=== PATIENT | male | born 1995 | race Caucasian/White ===

== ENCOUNTER 2016-04-23 20:48 | Emergency (ER) | payer MEDICAID ==
[~2016-04-23] VITALS: Ht 180.3 cm; Wt 45.4 kg
[~2016-04-23 20:48] MED LIST: AMOXICILLIN/CLA1 TA1 PO; CORTISPORIN (GE10 M1 OT; MOTRIN 100100 MG/5 M PO; TAMIFLU30 MG PO
[2016-04-23 21:34] VITALS: BP 113/66
--- NOTE | 2016-04-23 21:36 | Urgent Treatment Center Report ---
History of Present Issue Date/Time Seen by Provider 04/23/162125 Visit Reason Pt arrived:Walked Presenting Problem:PT STATES HE INJURIED HIS LEFT ELBOW AT [employer]. Location if Accident:[place] Onset of symptoms date/time:/ or onset unknown for:MEDICAL HX UNKNOWN Have you (or family members/close friends) recently traveled outside the [place]? N If Yes, where/when: Have you had exposure to infectious disease within the past month? TB? Other? Specify: Here w/ grandmother after hitting the inside of his left elbow w/ knumb chunks about 2 hours ago while at [employer] N/T and severe pain immediately after injury but now N/T has resolved and pain "some" better. Hasn't taken or tried anything for symptoms. Worried because painful to fully bend elbow. No swelling. Source patient, family (grandmother) Exam Limitations no limitations ALLERGIES Coded Allergies: Adhesives (I-RASH 06/28/15) azithromycin (06/28/15) codeine (06/28/15) latex (06/28/15) Home Medications Reported Medications No Known Home Medications History Medical History General CAD? No Angina: No RI: No Hypertension? No Hyperlipidemia? No CHF? No DVT? No PE? No COPD? No Asthma? No Anemia? No GERD? No Gastric ulcers? No GI Bleed? No Hernia? No Thyroid Problems? No Hypothyroidism? No CVA? No Seizures? No Diabetes? No Renal Insuffiency? No UTI? No Stones? No BPH? No GB Disease: Yes Nephritic Syndrome? No Asplenia? No Hepatitis? No Sickle Cell Disease? No Arthritis? No Migraines? No Cataracts? No Glaucoma? No MRSA? No HIV? No TB? No Anxiety? No Depression? No Cancer? No More? No Immunization HX Ped.Immunizations UTD Yes DT/Tetanus 5-10 Years Ago Flu Refused Pneumonia Refuses Surgical Hx Previous Surgery?Y TRAUMA AGE 3-RIB FX -LUNG PUNCTURED RICHAR Family History Family HX Diabetes No CAD No Hypertension Yes Hyperlipidemia No Cancer No TB No Social History Smoking Hx Smoker: Never Smoker Tobacco: No Alcohol Alcohol: No Review of Systems All Other Systems Reviewed and Negative Musculoskeletal see HPI Skin denies lesions Psychiatric/Neurological see HPI Physical Exam Vital Signs Vital Signs Date Time Temp Pulse Resp B/P Pulse O2 O2 Flow FiO2 Ox Delivery Rate 04/23 2133 98.5 78 18 113/66 98 04/23 2103 98.5 78 18 113/ 98 General Appearance normal appearance, no apparent distress, active Respiratory Status No: respiratory distress. Cardiovascular no peripheral edema Extremities limited range of motion (full extension), moderate tenderness over medial epicondyle only, slightly limited flexion left elbow, no swelling or bruising Strength 5 Upper Ext (L), 5 Upper Ext (R) Neurologic alert Skin normal color, warm/dry Medical Decision Making LABS/Meds/Orders Pt receiving controlled substance in ED? No Results/Orders Orders Procedure Date/time Status ELBOW-LT-3 VIEWS 04/23 2107 Active XRAY/CT/US XRAY/CT/US XRAY elbow (left) XR interpretation by reviewed by me (lizbeth w/ Dr. Huitron over phone) Xray Results no fracture seen, no dislocation Departure Departure Time of Disposition 2133 Disposition DC Home or Self Care(routine) Clinical Impression Primary Impression: Left elbow contusion Qualifiers: Encounter type: initial encounter Qualified Code: S50.02XA - Contusion of left elbow, initial encounter Condition STABLE Referrals Silver Mccauley MD (Family) as needed for new or worsening symptoms or if pain persist Patient Instructions DI for Contusion, DI for Elbow Pain Additional Instructions No movement restrictions Normal xray Ice for 15 minutes 3-4x/day Ibuprofen as needed for pain and edema FU for new or worsening symptoms or if no improvement over the next 3-5 days. Discharge Counseling Counseled pt/family regarding diagnosis, test results, medications/RX, home care, follow up needs Prescriptions Current Visit Scripts No Known Home Medications at 2142
--- NOTE | 2016-04-23 21:47 | RADIOLOGY REPORT PS360 ---
ELBOW-LT-3 VIEWS ORDERING PHYSICIAN : MANDI IVEY APRN PATIENT AGE: 20 years GENDER: Male INDICATION: INJURY Left elbow pain and injury TECHNIQUE: 3 views left elbow COMPARISON: No left elbow study. There is a Previous right elbow 03/27/2014 FINDINGS The left elbow is intact with no fracture. No joint effusion. . Bones well mineralized with joint space well maintained. Radial head appears intact and normal. No joint effusion or significant soft tissue findings. IMPRESSION: Negative left elbow. No fracture nor effusion
== END 2016-04-23 21:37 | disposition home or self-care (01) ==
LOC: UTC 20:48
DX: S50.02XA Contusion of left elbow, initial encounter (principal); W22.8XXA Striking against or struck by other objects, initial encounter; Y92.838 Other recreation area as the place of occurrence of the external cause